=== PATIENT | male | born 1990 | race Caucasian/White ===

== ENCOUNTER 2016-04-03 11:36 | Emergency (ER) | END 2016-04-03 12:37 | disposition left against medical advice (07) | LOC: UCCORT 11:36 | DX: H92.09 Otalgia, unspecified ear (principal); Z53.21 Procedure and treatment not carried out due to patient leaving prior to being seen by health care provider | CPT/HCPCS: 99211; G0463 ==

== ENCOUNTER 2024-01-06 11:43 | Inpatient (IN) ==
[2024-01-06 12:06] LABS: ABS Eosinophils 0.1 10^3/uL (0.0-0.5); ABS Lymphocytes 1.3 10^3/uL (1.0-4.8); ABS Monocytes 0.7 10^3/uL (0.0-1.1); ABS Neutrophils 4.3 10^3/uL (1.5-7.6); Hematocrit 45.5 % (38-53); Hemoglobin 15.5 g/dL (13.2-16.3); Lymphocyte % 20.5 %; Mean Corpuscular Hemoglobin 27.7 pg (27-33); Mean Corpuscular Volume 81.4 fL (80-97); Mean Platelet Volume 8.2 fL (7.5-11.2); Nucleated Red Blood Cells % 0.1 %/100WBC (0.0-0.8); Platelet Count 209 10^3/uL (150-450); Red Blood Count 5.58 10^6/uL (4.06-5.63); Red Cell Distribution Width 12.5 % (12-17); White Blood Count 6.5 10^3/uL (3.6-10.2)
[2024-01-06 12:39] LABS: Albumin 4.5 g/dL (3.2-5.2); Albumin/Globulin Ratio 1.6 (1-3); Calcium 9.9 mg/dL (8.6-10.3); Creatinine, Serum 0.9 mg/dL (0.67-1.17); Globulin 2.9 g/dL (2-4); Magnesium 2.1 mg/dL (1.9-2.7); Total Bilirubin 0.4 mg/dL (0.2-1.0); Total Protein 7.4 g/dL (6.4-8.9); eGFR CKD-EPI 117.1 (>60)
[2024-01-06] MEDS: Lactated Ringers 1000 ml BAG 1,000 ML IV SCH (18:29)
[2024-01-06] MEDS: CMC:Levetiracetam XR 500 MG TAB.XR PO SCH (21:33)
[2024-01-06] MEDS: Gadoteridol (CONTRAST) 279.3 MG/ML 10 ML IV ONE (23:03)
[2024-01-07] MEDS: LaCOSAMide VIAL 50 MG in NS 0.9% 50 ML 50 ML IV ONE (00:40)
[2024-01-07] MEDS ORDERED: Lorazepam PYXIS KEY PRN ×3 (03:05→14:37)
[2024-01-07] MEDS: LORazepam 2 mg VIAL 1 ml IV PUSH ONE ×3 (03:10→14:37)
[2024-01-07 04:30] LABS: ABS Basophils 0.1 10^3/uL (0.0-0.1); ABS Eosinophils 0.1 10^3/uL (0.0-0.5); ABS Lymphocytes 1.3 10^3/uL (1.0-4.8); ABS Monocytes 0.8 10^3/uL (0.0-1.1); ABS Neutrophils 7.3 10^3/uL (1.5-7.6); Eosinophil % 0.9 %; Hematocrit 43.1 % (38-53); Hemoglobin 14.6 g/dL (13.2-16.3); Lymphocyte % 13.1 %; Mean Corpuscular Hemoglobin 27.6 pg (27-33); Mean Corpuscular Hgb Conc 33.9 g/dL (31-36); Mean Corpuscular Volume 81.5 fL (80-97); Mean Platelet Volume 8.6 fL (7.5-11.2); Platelet Count 214 10^3/uL (150-450); Red Blood Count 5.29 10^6/uL (4.06-5.63); Red Cell Distribution Width 12.6 % (12-17); White Blood Count 9.6 10^3/uL (3.6-10.2)
[2024-01-07 05:30] LABS: Potassium 4.8 mmol/L (3.5-5.0)
[2024-01-07 05:31] LABS: Albumin 4.1 g/dL (3.2-5.2); Albumin/Globulin Ratio 1.5 (1-3); Calcium 9.5 mg/dL (8.6-10.3); Creatinine, Serum 0.83 mg/dL (0.67-1.17); Globulin 2.8 g/dL (2-4); Magnesium 1.9 mg/dL (1.9-2.7); Total Bilirubin 0.5 mg/dL (0.2-1.0); Total Protein 6.9 g/dL (6.4-8.9)
[2024-01-07] MEDS ORDERED: LORazepam 2 MG/ML 1 mL Syringe IV ONE (07:30)
[2024-01-07] MEDS: LaCOSAMide VIAL 200 MG in NS 0.9% 50 ML 50 ML IV ONE (14:39)
[2024-01-07] MEDS: LORazepam 2 mg VIAL 1 ml ONE (14:56)
[2024-01-07] MEDS ORDERED: LaCOSAMide VIAL 200 MG in NS 0.9% 50 ML 50 ML IV SCH (15:00)
[2024-01-07] MEDS ORDERED: LORazepam 2 mg VIAL 1 ml IV PUSH PRN (15:00)
[2024-01-07] MEDS: Lactated Ringers 1000 ml BAG 1,000 ML IV SCH (16:18)
[2024-01-07] MEDS: Magnesium Sulfate IV 1GM/100ML 1 GM/100 ML BAG IV ONE (16:19)
[2024-01-07] MEDS ORDERED: LACOSAMIDE IV SCH (21:00)
[2024-01-07] MEDS ORDERED: NS 0.9% IV SCH (21:00)
[2024-01-07] MEDS: LaCOSAMide VIAL 100 MG in NS 0.9% 50 ML 50 ML IV SCH (21:09)
[2024-01-08] MEDS: KEPPRA 750 MG PO SCH
[2024-01-08] MEDS: KEPPRA 500 MG PO SCH
[2024-01-08] MEDS: LaCOSAMide VIAL 100 MG in NS 0.9% 50 ML 50 ML IV SCH (00:21)
[2024-01-08 04:38] LABS: ABS Basophils 0.1 10^3/uL (0.0-0.1); ABS Eosinophils 0.2 10^3/uL (0.0-0.5); ABS Lymphocytes 1.4 10^3/uL (1.0-4.8); ABS Monocytes 0.8 10^3/uL (0.0-1.1); ABS Neutrophils 6.3 10^3/uL (1.5-7.6); Eosinophil % 1.8 %; Hemoglobin 14.4 g/dL (13.2-16.3); Lymphocyte % 16.6 %; Mean Corpuscular Hemoglobin 27.2 pg (27-33); Mean Corpuscular Hgb Conc 33.6 g/dL (31-36); Mean Platelet Volume 8.3 fL (7.5-11.2); Platelet Count 190 10^3/uL (150-450); Red Cell Distribution Width 12.4 % (12-17); White Blood Count 8.7 10^3/uL (3.6-10.2)
[2024-01-08 04:58] LABS: Urine Appearance No Cx Clear (Clear); Urine Bilirubin No Culture Negative (Negative); Urine Blood No Culture Negative (Negative); Urine Color No Culture Light-Yellow; Urine Glucose No Culture Negative (Negative); Urine Ketones No Culture Negative (Negative); Urine Leukocytes No Culture Negative Leu/uL (Negative); Urine Nitrite No Culture Negative (Negative); Urine Protein No Culture Negative (Negative); Urine Specific Gravity No Cx 1.013 (1.002-1.030); Urine Urobilinogen No Cx Negative (Negative); Urine pH No Culture 6.5 (5.0-8.0)
[2024-01-08 05:00] LABS: Urine Bacteria No Culture Absent /HPF (Absent); Urine Red Blood Cell No Cult Trace(0-2/hpf) /HPF (0-Trace); Urine White Blood Cell No Cult Absent /HPF (0-Trace)
[2024-01-08] MEDS: LORazepam 2 mg VIAL 1 ml IV PUSH PRN (05:01)
[2024-01-08 06:39] LABS: Calcium 9.1 mg/dL (8.6-10.3); Creatinine, Serum 0.84 mg/dL (0.67-1.17); Magnesium 1.9 mg/dL (1.9-2.7); Potassium 4.3 mmol/L (3.5-5.0); eGFR CKD-EPI 119.6 (>60)
[2024-01-08] MEDS: Magnesium Sulfate IV 1GM/100ML 1 GM/100 ML BAG IV ONE (08:32)
[2024-01-08 10:03] LABS: Levetiracetam 52.3 mcg/mL
[2024-01-08 10:25] LABS: Lamotrigine <0.2 mcg/mL (3.0-15.0)
[2024-01-08] MEDS: VALPROIC ACID IVPB ONE (11:56)
[2024-01-08] MEDS: NS 0.9% IVPB ONE (11:56)
[2024-01-08] MEDS: NS 0.9% IVPB SCH (16:52)
[2024-01-08] MEDS: VALPROIC ACID IVPB SCH (16:52)
[2024-01-08] MEDS: Lactated Ringers 1000 ml BAG 1,000 ML IV SCH (18:10)
[2024-01-08 19:39] LABS: Urine Appearance Clear; Urine Bilirubin Negative (Negative); Urine Blood Negative (Negative); Urine Color Light-Yellow; Urine Glucose Negative (Negative); Urine Ketones 1+ (Negative); Urine Nitrite Negative (Negative); Urine Protein Negative (Negative); Urine Specific Gravity 1.014 (1.002-1.030); Urine Urobilinogen Negative (Negative); Urine pH 6.5 (5.0-8.0)
[2024-01-09 04:44] LABS: ABS Basophils 0.1 10^3/uL (0.0-0.1); ABS Eosinophils 0.1 10^3/uL (0.0-0.5); ABS Lymphocytes 1.4 10^3/uL (1.0-4.8); ABS Monocytes 0.5 10^3/uL (0.0-1.1); ABS Neutrophils 5.7 10^3/uL (1.5-7.6); Eosinophil % 1.6 %; Hematocrit 44.8 % (38-53); Lymphocyte % 17.8 %; Mean Corpuscular Hemoglobin 27.3 pg (27-33); Mean Corpuscular Hgb Conc 33.6 g/dL (31-36); Mean Corpuscular Volume 81.2 fL (80-97); Mean Platelet Volume 8.2 fL (7.5-11.2); Platelet Count 202 10^3/uL (150-450); Red Blood Count 5.51 10^6/uL (4.06-5.63); Red Cell Distribution Width 12.4 % (12-17); White Blood Count 7.8 10^3/uL (3.6-10.2)
[2024-01-09 05:19] LABS: Albumin/Globulin Ratio 1.5 (1-3); Calcium 9.3 mg/dL (8.6-10.3); Creatinine, Serum 0.78 mg/dL (0.67-1.17); Globulin 2.6 g/dL (2-4); Magnesium 1.9 mg/dL (1.9-2.7); Potassium 4.5 mmol/L (3.5-5.0); Total Bilirubin 0.5 mg/dL (0.2-1.0); Total Protein 6.6 g/dL (6.4-8.9); eGFR CKD-EPI 122.3 (>60)
[2024-01-09] MEDS: Magnesium Sulfate IV 1GM/100ML 1 GM/100 ML BAG IV ONE (07:55)
[2024-01-09] MEDS ORDERED: Etomidate 40 mg/20 ml (2 MG/ML) 20 ml VIAL (40 mg) ONE (09:44)
[2024-01-09] MEDS ORDERED: Midazolam 10 mg/10 ml VIAL 1 mg/ml 10 ml VIAL (10 mg) ONE (09:44)
[2024-01-09] MEDS ORDERED: Rocuronium 50 mg VIAL 10 mg/ml 5 ml VIAL (50 mg) ONE (09:44)
[2024-01-09] MEDS ORDERED: Propofol 10 MG/ML 20 ML BTL ONE (09:44)
[2024-01-09] MEDS: Midazolam PREMIXBAG 1 MG/ML NS 100 ML IV SCH (10:05)
[2024-01-09] MEDS: Propofol 10 mg/ml 100 ML BTL 1,000 MG/100 ML BTL IV SCH ×2 (10:07→21:35)
[2024-01-09] MEDS: Propofol 10 mg/ml 100 ML BTL 1,000 MG/100 ML BTL ONE (10:13)
[2024-01-09] MEDS: Phenylephrine 40 mcg/mL 10mL (400mcg) SYRINGE ONE ×2 (10:13→12:58)
[2024-01-09] MEDS: Midazolam PREMIXBAG 1 MG/ML NS 100 ML IV ONE (10:13)
[2024-01-09] MEDS: Rocuronium 50 mg VIAL 10 mg/ml 5 ml VIAL (50 mg) ONE (10:13)
[2024-01-09] MEDS: Midazolam 5 mg/5 ml VIAL 1 mg/ml 5 ml VIAL (5 mg) ONE ×2 (10:13→10:42)
[2024-01-09] MEDS: Midazolam 5 mg/5 ml VIAL 1 mg/ml 5 ml VIAL (5 mg) IV SLOW PU ONE (10:42)
[2024-01-09 12:09] LABS: ABS Eosinophils 0.1 10^3/uL (0.0-0.5); ABS Lymphocytes 1.5 10^3/uL (1.0-4.8); ABS Monocytes 0.6 10^3/uL (0.0-1.1); ABS Neutrophils 5.7 10^3/uL (1.5-7.6); Eosinophil % 1.7 %; Hematocrit 45.2 % (38-53); Hemoglobin 15.1 g/dL (13.2-16.3); Lymphocyte % 18.7 %; Mean Corpuscular Hemoglobin 27.2 pg (27-33); Mean Corpuscular Hgb Conc 33.4 g/dL (31-36); Mean Corpuscular Volume 81.2 fL (80-97); Mean Platelet Volume 8.3 fL (7.5-11.2); Platelet Count 247 10^3/uL (150-450); Red Blood Count 5.57 10^6/uL (4.06-5.63); Red Cell Distribution Width 12.5 % (12-17)
[2024-01-09] MEDS: fentaNYL 100 mcg/2 ml 50 MCG/ML VIAL ONE (12:44)
[2024-01-09] MEDS ORDERED: levETIRAcetam 1000MG IVPREMIX 1,000 MG/100 ML BAG IVPB SCH (14:00)
[2024-01-09] MEDS: Lactated Ringers 1000 ml BAG 1,000 ML IV ONE (15:05)
[2024-01-09] MEDS ORDERED: Zosyn per Pharmacy NOTE FOLLOW UP SCH (16:00)
[2024-01-09] MEDS: Piperacillin/Tazobac 3.375 BAG 3.375 GM/100 ML BAG IV ONE (16:14)
[2024-01-09] MEDS: fentaNYL 100 mcg/2 ml 50 MCG/ML VIAL IV SLOW PU PRN (17:35)
[2024-01-09] MEDS ORDERED: fentaNYL 100 mcg/2 ml 50 MCG/ML VIAL IV SLOW PU PRN (17:40)
[2024-01-09] MEDS: Propofol 10 MG/ML 20 ML BTL IV PUSH ONE (17:55)
[2024-01-09] MEDS: Chlorhexidine MOUTHWASH 0.12% 15 ML UDC TOPICAL SCH (18:09)
[2024-01-09] MEDS: Midazolam 5 mg/5 ml VIAL 1 mg/ml 5 ml VIAL (5 mg) IV SLOW PU PRN (18:13)
[2024-01-09] MEDS: Famotidine IV 10 MG/ML 2 ml VIAL (20 mg) IV SLOW PU SCH (19:37)
[2024-01-09] MEDS: Enoxaparin 40 MG/0.4 ML SYR SUBCUT SCH (19:37)
[2024-01-09] MEDS: LEVETIRACETAM IVPB SCH (20:23)
[2024-01-09] MEDS: ZOSYN 3.375 GM Q8H per EXTENDED INFUSION IV SCH (20:23)
[2024-01-09] MEDS: NS 0.9% IVPB SCH (20:23)
[2024-01-10] MEDS: Lactated Ringers 1000 ml BAG 1,000 ML IV SCH (01:15)
[2024-01-10 04:45] LABS: ABS Eosinophils 0.2 10^3/uL (0.0-0.5); ABS Lymphocytes 1.6 10^3/uL (1.0-4.8); ABS Monocytes 1.4 10^3/uL (0.0-1.1); ABS Neutrophils 13.2 10^3/uL (1.5-7.6); Eosinophil % 1.1 %; Hematocrit 40.3 % (38-53); Hemoglobin 13.5 g/dL (13.2-16.3); Lymphocyte % 9.5 %; Mean Corpuscular Hemoglobin 27.4 pg (27-33); Mean Corpuscular Hgb Conc 33.6 g/dL (31-36); Mean Corpuscular Volume 81.5 fL (80-97); Mean Platelet Volume 8.7 fL (7.5-11.2); Platelet Count 179 10^3/uL (150-450); Red Blood Count 4.94 10^6/uL (4.06-5.63); Red Cell Distribution Width 12.5 % (12-17); White Blood Count 16.4 10^3/uL (3.6-10.2)
[2024-01-10 05:11] LABS: Albumin 3.3 g/dL (3.2-5.2); Albumin/Globulin Ratio 1.7 (1-3); Calcium 8.5 mg/dL (8.6-10.3); Creatinine, Serum 1.05 mg/dL (0.67-1.17); Magnesium 1.9 mg/dL (1.9-2.7); Potassium 4.2 mmol/L (3.5-5.0); Total Bilirubin 0.3 mg/dL (0.2-1.0); Total Protein 5.3 g/dL (6.4-8.9); eGFR CKD-EPI 97.3 (>60)
[2024-01-10] MEDS: Iohexol 350 (CONTRAST) 500 ML MDV IV ONE (09:32)
[2024-01-10] MEDS: Propofol 10 MG/ML 20 ML BTL IV PUSH ONE (09:33)
[2024-01-10 10:43] LABS: Resp Rate 14
[2024-01-10 10:44] LABS: PCO2 Arterial 51 mmHg (35-45); PO2 Arterial 111 mmHg (80-100)
[2024-01-10] MEDS ORDERED: Albuterol/Ipratropium NEB.SOL (2.5/0.5 MG) 3 ML NEB.SOLN INH SCH (11:00)
[2024-01-10] MEDS: Albuterol/Ipratropium NEB.SOL (2.5/0.5 MG) 3 ML NEB.SOLN INH SCH (13:11)
[2024-01-10] MEDS: NS 0.9% 500 ml BAG 500 ML IV SCH (15:47)
[2024-01-11 04:21] LABS: ABS Basophils 0.1 10^3/uL (0.0-0.1); ABS Eosinophils 0.2 10^3/uL (0.0-0.5); ABS Lymphocytes 0.7 10^3/uL (1.0-4.8); ABS Monocytes 0.8 10^3/uL (0.0-1.1); ABS Neutrophils 9.2 10^3/uL (1.5-7.6); Eosinophil % 1.6 %; Hematocrit 36.9 % (38-53); Hemoglobin 12.4 g/dL (13.2-16.3); Lymphocyte % 6.4 %; Mean Corpuscular Hemoglobin 27.6 pg (27-33); Mean Corpuscular Hgb Conc 33.7 g/dL (31-36); Mean Platelet Volume 8.5 fL (7.5-11.2); Platelet Count 165 10^3/uL (150-450); Red Cell Distribution Width 12.7 % (12-17); White Blood Count 10.9 10^3/uL (3.6-10.2)
[2024-01-11 05:08] LABS: Albumin 3.1 g/dL (3.2-5.2); Albumin/Globulin Ratio 1.6 (1-3); Calcium 8.1 mg/dL (8.6-10.3); Creatinine, Serum 0.83 mg/dL (0.67-1.17); Magnesium 1.9 mg/dL (1.9-2.7); Total Bilirubin 0.2 mg/dL (0.2-1.0); Total Protein 5.1 g/dL (6.4-8.9)
[2024-01-11] MEDS: Furosemide 40 mg/4 ml IV VIAL IV ONE (09:26)
[2024-01-12 03:25] LABS: ABS Basophils 0.1 10^3/uL (0.0-0.1); ABS Eosinophils 0.1 10^3/uL (0.0-0.5); ABS Lymphocytes 0.7 10^3/uL (1.0-4.8); ABS Neutrophils 9.9 10^3/uL (1.5-7.6); Eosinophil % 0.7 %; Hemoglobin 12.1 g/dL (13.2-16.3); Lymphocyte % 5.5 %; Mean Corpuscular Hgb Conc 32.8 g/dL (31-36); Mean Corpuscular Volume 82.3 fL (80-97); Mean Platelet Volume 9.6 fL (7.5-11.2); Platelet Count 169 10^3/uL (150-450); Red Cell Distribution Width 12.8 % (12-17); White Blood Count 11.7 10^3/uL (3.6-10.2)
[2024-01-12 03:30] LABS: ALT 14 U/L (7-52); Albumin/Globulin Ratio 1.4 (1-3); Alkaline Phosphatase 50 U/L (35-149); Anion Gap 8 mmol/L (2-16); Blood Urea Nitrogen 12 mg/dL (6-24); CO2 Carbon Dioxide 29 mmol/L (22-32); Chloride 104 mmol/L (101-111); Creatinine, Serum 0.69 mg/dL (0.67-1.17); Globulin 2.2 g/dL (2-4); Glucose 133 mg/dL (70-100); Sodium 141 mmol/L (135-145); Total Bilirubin 0.4 mg/dL (0.2-1.0); Total Protein 5.2 g/dL (6.4-8.9); eGFR CKD-EPI 126.9 (>60)
[2024-01-12 04:24] LABS: Magnesium 1.8 mg/dL (1.9-2.7); Potassium Redraw 3.8 mmol/L (3.5-5.0)
[2024-01-12] MEDS: Magnesium Sulfate IV 1GM/100ML 1 GM/100 ML BAG IV ONE (05:16)
[2024-01-12] MEDS ORDERED: Albuterol/Ipratropium NEB.SOL (2.5/0.5 MG) 3 ML NEB.SOLN INH PRN (06:41)
[2024-01-12] MEDS: Valproic Acid IV 500 MG in NS 0.9% 100 ml BAG 100 ML IVPB SCH (11:10)
[2024-01-12] MEDS ORDERED: VANCOMYCIN IVPB ONE (15:18)
[2024-01-12] MEDS ORDERED: NS 0.9% IVPB ONE (15:18)
[2024-01-12] MEDS ORDERED: Vancomycin per Pharmacy 1 EA NOTE FOLLOW UP SCH (16:00)
[2024-01-12] MEDS: Propofol 10 mg/ml 100 ML BTL 1,000 MG/100 ML BTL IV SCH (16:04)
[2024-01-12] MEDS: Vancomycin 1,750 MG in NS 0.9% 500 ml BAG 500 ML IVPB ONE (16:47)
[2024-01-12] MEDS: Potassium Chloride LIQUID 20 MEQ/15 ML LIQUID NG TUBE ONE (16:47)
[2024-01-12] MEDS: Vancomycin 1,250 MG in NS 0.9% 250 ml 250 ML IVPB SCH (18:01)
[2024-01-13] MEDS: Vancomycin 1,250 MG in NS 0.9% 250 ml 250 ML IVPB SCH (00:56)
[2024-01-13] MEDS ORDERED: Ondansetron 4 mg VIAL 2 MG/ML 2 ml VIAL IV PRN (04:18)
[2024-01-13 04:25] LABS: ABS Eosinophils 0.2 10^3/uL (0.0-0.5); ABS Lymphocytes 1.1 10^3/uL (1.0-4.8); ABS Neutrophils 7.5 10^3/uL (1.5-7.6); Eosinophil % 2.4 %; Hematocrit 38.5 % (38-53); Hemoglobin 12.9 g/dL (13.2-16.3); Lymphocyte % 11.2 %; Mean Corpuscular Hemoglobin 27.5 pg (27-33); Mean Corpuscular Hgb Conc 33.5 g/dL (31-36); Mean Corpuscular Volume 82.1 fL (80-97); Mean Platelet Volume 8.7 fL (7.5-11.2); Platelet Count 203 10^3/uL (150-450); Red Blood Count 4.69 10^6/uL (4.06-5.63); Red Cell Distribution Width 12.7 % (12-17); White Blood Count 9.9 10^3/uL (3.6-10.2)
[2024-01-13 05:21] LABS: Albumin 3.1 g/dL (3.2-5.2); Albumin/Globulin Ratio 1.3 (1-3); Calcium 8.2 mg/dL (8.6-10.3); Creatinine, Serum 0.65 mg/dL (0.67-1.17); Globulin 2.3 g/dL (2-4); Magnesium 1.9 mg/dL (1.9-2.7); Potassium 4.4 mmol/L (3.5-5.0); Total Bilirubin 0.4 mg/dL (0.2-1.0); Total Protein 5.4 g/dL (6.4-8.9); eGFR CKD-EPI 129.2 (>60)
[2024-01-13] MEDS: Rocuronium 50 mg VIAL 10 mg/ml 5 ml VIAL (50 mg) ONE (05:38)
[2024-01-13] MEDS: Senna TAB 8.6 mg TAB NG TUBE SCH (09:19)
[2024-01-13] MEDS: Polyethylene Glycol 3350 17 GM PACKET NG TUBE SCH (09:19)
[2024-01-13] MEDS: Acetaminophen IV 1 GM/100ML 1,000 MG/100 ML BAG IV PRN (13:29)
[2024-01-13] MEDS ORDERED: Lorazepam PYXIS KEY PRN ×2 (14:03→19:18)
[2024-01-13] MEDS: LORazepam 2 mg VIAL 1 ml IV PUSH ONE (14:26)
[2024-01-13 14:42] LABS: Venous Bicarbonate HCO3 27.2 mmol/L (24-28)
[2024-01-13] MEDS: Vancomycin Trough Check NOTE FOLLOW UP ONE (17:31)
[2024-01-13] MEDS: LORazepam 2 mg VIAL 1 ml IV PUSH SCH (20:21)
[2024-01-13] MEDS: Polyethylene Glycol 3350 17 GM PACKET PO SCH (20:52)
[2024-01-13] MEDS: LORazepam 2 mg VIAL 1 ml ONE (20:58)
[2024-01-14] MEDS: Vancomycin 2000 MG X 1 dose, then per Pharmacy PROTOCOL IVPB ONE (00:35)
[2024-01-14 04:34] LABS: ABS Basophils 0.1 10^3/uL (0.0-0.1); ABS Eosinophils 0.2 10^3/uL (0.0-0.5); ABS Lymphocytes 1.2 10^3/uL (1.0-4.8); ABS Monocytes 0.9 10^3/uL (0.0-1.1); ABS Neutrophils 5.3 10^3/uL (1.5-7.6); Eosinophil % 2.9 %; Hematocrit 38.5 % (38-53); Hemoglobin 12.9 g/dL (13.2-16.3); Lymphocyte % 15.7 %; Mean Corpuscular Hemoglobin 27.6 pg (27-33); Mean Corpuscular Hgb Conc 33.5 g/dL (31-36); Mean Corpuscular Volume 82.4 fL (80-97); Mean Platelet Volume 8.3 fL (7.5-11.2); Platelet Count 225 10^3/uL (150-450); Red Blood Count 4.67 10^6/uL (4.06-5.63); Red Cell Distribution Width 12.6 % (12-17); White Blood Count 7.7 10^3/uL (3.6-10.2)
[2024-01-14 04:55] LABS: Albumin 3.1 g/dL (3.2-5.2); Albumin/Globulin Ratio 1.3 (1-3); Calcium 8.3 mg/dL (8.6-10.3); Creatinine, Serum 0.63 mg/dL (0.67-1.17); Globulin 2.3 g/dL (2-4); Magnesium 1.7 mg/dL (1.9-2.7); Potassium 3.8 mmol/L (3.5-5.0); Total Bilirubin 0.3 mg/dL (0.2-1.0); Total Protein 5.4 g/dL (6.4-8.9); eGFR CKD-EPI 130.4 (>60)
[2024-01-14] MEDS: Magnesium Sulfate 2 gm BAG 2 GM/50 ML BAG IVPB ONE ×3 (05:35→09:39)
[2024-01-14] MEDS: KCL 20 MEQ/100 ML IVPREMIX 20 MEQ/100 ML BAG IV SCH (07:33)
[2024-01-14] MEDS: Vancomycin 1000 MG in NS 0.9% 250 ML IVPB SCH (08:45)
[2024-01-14] MEDS ORDERED: Vancomycin Random Level NOTE FOLLOW UP ONE (12:30)
[2024-01-14] MEDS ORDERED: Acetaminophen IV 1 GM/100ML 1,000 MG/100 ML BAG IV PRN (16:25)
[2024-01-15 03:29] LABS: ABS Eosinophils 0.2 10^3/uL (0.0-0.5); ABS Lymphocytes 1.3 10^3/uL (1.0-4.8); ABS Monocytes 0.7 10^3/uL (0.0-1.1); ABS Neutrophils 4.7 10^3/uL (1.5-7.6); Hematocrit 38.5 % (38-53); Hemoglobin 12.8 g/dL (13.2-16.3); Lymphocyte % 18.2 %; Mean Corpuscular Hemoglobin 27.1 pg (27-33); Mean Corpuscular Hgb Conc 33.2 g/dL (31-36); Mean Corpuscular Volume 81.5 fL (80-97); Mean Platelet Volume 8.3 fL (7.5-11.2); Platelet Count 239 10^3/uL (150-450); Red Blood Count 4.73 10^6/uL (4.06-5.63); Red Cell Distribution Width 12.5 % (12-17)
[2024-01-15 04:00] LABS: Albumin 3.3 g/dL (3.2-5.2); Albumin/Globulin Ratio 1.5 (1-3); Calcium 8.4 mg/dL (8.6-10.3); Creatinine, Serum 0.61 mg/dL (0.67-1.17); Globulin 2.2 g/dL (2-4); Magnesium 1.9 mg/dL (1.9-2.7); Phosphorus 2.6 mg/dL (2.5-5.0); Potassium 3.7 mmol/L (3.5-5.0); Total Bilirubin 0.3 mg/dL (0.2-1.0); Total Protein 5.5 g/dL (6.4-8.9); eGFR CKD-EPI 131.7 (>60)
[2024-01-15] MEDS: Vancomycin Trough Check NOTE FOLLOW UP ONE (13:13)
[2024-01-16 04:22] LABS: ABS Eosinophils 0.2 10^3/uL (0.0-0.5); ABS Lymphocytes 1.4 10^3/uL (1.0-4.8); ABS Monocytes 0.6 10^3/uL (0.0-1.1); ABS Neutrophils 3.9 10^3/uL (1.5-7.6); Eosinophil % 3.4 %; Hemoglobin 13.1 g/dL (13.2-16.3); Lymphocyte % 23.1 %; Mean Corpuscular Hemoglobin 27.6 pg (27-33); Mean Corpuscular Hgb Conc 33.7 g/dL (31-36); Mean Corpuscular Volume 81.8 fL (80-97); Mean Platelet Volume 8.3 fL (7.5-11.2); Platelet Count 243 10^3/uL (150-450); Red Blood Count 4.77 10^6/uL (4.06-5.63); Red Cell Distribution Width 12.7 % (12-17); White Blood Count 6.3 10^3/uL (3.6-10.2)
[2024-01-16 05:12] LABS: ALT 80 U/L (7-52); Albumin 3.3 g/dL (3.2-5.2); Albumin/Globulin Ratio 1.3 (1-3); Alkaline Phosphatase 48 U/L (35-149); Anion Gap 8 mmol/L (2-16); Blood Urea Nitrogen 12 mg/dL (6-24); CO2 Carbon Dioxide 25 mmol/L (22-32); Calcium 8.7 mg/dL (8.6-10.3); Chloride 107 mmol/L (101-111); Creatinine, Serum 0.61 mg/dL (0.67-1.17); Globulin 2.6 g/dL (2-4); Glucose 82 mg/dL (70-100); Sodium 140 mmol/L (135-145); Total Bilirubin 0.4 mg/dL (0.2-1.0); Total Protein 5.9 g/dL (6.4-8.9); eGFR CKD-EPI 131.7 (>60)
[2024-01-16 06:47] LABS: Magnesium 1.9 mg/dL (1.9-2.7)
[2024-01-16 11:43] LABS: Calcium 8.8 mg/dL (8.6-10.3); Creatinine, Serum 0.65 mg/dL (0.67-1.17); Phosphorus 3.7 mg/dL (2.5-5.0); Potassium 3.9 mmol/L (3.5-5.0); eGFR CKD-EPI 129.2 (>60)
[2024-01-17 04:26] LABS: ABS Basophils 0.1 10^3/uL (0.0-0.1); ABS Eosinophils 0.2 10^3/uL (0.0-0.5); ABS Lymphocytes 1.7 10^3/uL (1.0-4.8); ABS Monocytes 0.7 10^3/uL (0.0-1.1); ABS Neutrophils 3.9 10^3/uL (1.5-7.6); Hematocrit 38.1 % (38-53); Lymphocyte % 25.8 %; Mean Corpuscular Hemoglobin 27.7 pg (27-33); Mean Corpuscular Volume 81.6 fL (80-97); Platelet Count 253 10^3/uL (150-450); Red Blood Count 4.67 10^6/uL (4.06-5.63); Red Cell Distribution Width 12.8 % (12-17); White Blood Count 6.6 10^3/uL (3.6-10.2)
[2024-01-17 04:54] LABS: Albumin 3.5 g/dL (3.2-5.2); Albumin/Globulin Ratio 1.5 (1-3); Calcium 8.8 mg/dL (8.6-10.3); Creatinine, Serum 0.66 mg/dL (0.67-1.17); Globulin 2.3 g/dL (2-4); Magnesium 1.9 mg/dL (1.9-2.7); Phosphorus 2.9 mg/dL (2.5-5.0); Potassium 3.6 mmol/L (3.5-5.0); Total Bilirubin 0.3 mg/dL (0.2-1.0); Total Protein 5.8 g/dL (6.4-8.9); eGFR CKD-EPI 128.6 (>60)
[2024-01-17] MEDS: Valproic Acid LIQ 250 MG/5 ML UDC PO SCH (20:44)
[2024-01-17] MEDS: levETIRAcetam LIQ 500 MG/5 ML UDC PO SCH (20:44)
[2024-01-18 05:03] LABS: ABS Basophils 0.1 10^3/uL (0.0-0.1); ABS Eosinophils 0.1 10^3/uL (0.0-0.5); ABS Lymphocytes 1.7 10^3/uL (1.0-4.8); ABS Monocytes 0.6 10^3/uL (0.0-1.1); ABS Neutrophils 3.2 10^3/uL (1.5-7.6); ABS Nucleated RBC 0.01 10^3/ul; Eosinophil % 2.5 %; Hematocrit 38.4 % (38-53); Lymphocyte % 30.4 %; Mean Corpuscular Hemoglobin 27.7 pg (27-33); Mean Corpuscular Hgb Conc 33.9 g/dL (31-36); Mean Corpuscular Volume 81.8 fL (80-97); Mean Platelet Volume 8.1 fL (7.5-11.2); Nucleated Red Blood Cells % 0.1 %/100WBC (0.0-0.8); Platelet Count 267 10^3/uL (150-450); Red Cell Distribution Width 12.6 % (12-17); White Blood Count 5.7 10^3/uL (3.6-10.2)
[2024-01-18 05:47] LABS: Albumin 3.5 g/dL (3.2-5.2); Albumin/Globulin Ratio 1.6 (1-3); Calcium 8.7 mg/dL (8.6-10.3); Creatinine, Serum 0.65 mg/dL (0.67-1.17); Globulin 2.2 g/dL (2-4); Potassium 3.9 mmol/L (3.5-5.0); Total Bilirubin 0.3 mg/dL (0.2-1.0); Total Protein 5.7 g/dL (6.4-8.9); eGFR CKD-EPI 129.2 (>60)
[2024-01-18] MEDS ORDERED: Vancomycin Trough Check NOTE FOLLOW UP ONE (07:30)
[2024-01-18 12:15] VITALS: BP 128/84
== END 2024-01-18 13:50 | disposition home or self-care (01) | DRG 100 ==
LOC: ED 11:43 → EDHOLD 11:43 → MEDTELE 17:32 → ICU 01-07 03:03 → SUATTDRO 01-07 07:30
PROVIDERS: ADMIT Student in an Organized Health Care Education/Training Program; ATTEND Student in an Organized Health Care Education/Training Program